=== PATIENT | female | born 1970 | race Caucasian/White ===

== ENCOUNTER 2021-08-19 22:27 | Inpatient (IN) | payer MEDICAID ==
[~2021-08-19] VITALS: Ht 160 cm; Wt 50.2 kg
[~2021-08-19 22:27] MED LIST: iohexol 350MG/ML 100ml bottle IV ONE
[2021-08-19] MEDS ORDERED: nitroGLYCERIN 1gm ointment UD TP ONE ×2 (22:46→22:50)
[2021-08-19] MEDS ORDERED: heparin 10,000 units/1 ML INJ IV ONE (22:50)
[2021-08-19] MEDS ORDERED: heparin 25,000 UNIT/250ml bag 250 ML IV SCH (22:50)
[2021-08-19] MEDS ORDERED: morphine 2 MG/ML inj. syringe IV ONE (22:50)
[2021-08-19 23:00] LABS: HEMATOCRIT 42.6 % (35.0-45.0); HEMOGLOBIN 14.7 g/dl (12.0-16.0); RED BLOOD COUNT 4.68 X10'6 (4.20-5.60); RED CELL DISTRIBUTION WIDTH 13.3 % (11.5-14.5)
[2021-08-19] MEDS ORDERED: morphine 4 MG/ML inj SYRINge IV ONE ×2 (23:00)
[2021-08-19] MEDS ORDERED: metoclopramide 5 mg/ml inj IV ONE (23:00)
[2021-08-19 23:02] LABS: BASOPHILS # (AUTO) 0.1 X10'3 (0-0.2); BASOPHILS % (AUTO) 0.9 % (0-1); EOSINOPHILS # (AUTO) 0.2 X10'3 (0-0.9); LYMPHOCYTES # (AUTO) 1.7 X10'3 (1.1-4.8); LYMPHOCYTES % (AUTO) 23.4 % (21-51); MEAN CORPUSCULAR HEMOGLOBIN 31.4 PG (27.0-31.0); MEAN CORPUSCULAR HGB CONC 34.5 g/dL (33.0-36.5); MEAN CORPUSCULAR VOLUME 91.1 FL (78-98); MEAN PLATELET VOLUME 8.8 FL (7.4-10.4); MONOCYTES # (AUTO) 0.7 X10'3 (0-0.9); NEUTROPHILS # (AUTO) 4.6 X10'3 (1.8-7.7); NEUTROPHILS % (AUTO) 62.7 % (42-75); PLATELET COUNT 249 X10'3 (140-440); WHITE BLOOD COUNT 7.4 X10'3 (4.5-11.0)
[2021-08-19 23:05] LABS: APTT 26 SECONDS (22-32)
[2021-08-19] MEDS ORDERED: metoprolol tartrate 1mg/ml inj IV ONE (23:05)
[2021-08-19 23:06] LABS: ALANINE AMINOTRANSFERASE 50 U/L (12-78); ALBUMIN 3.9 G/DL (3.4-5.0); ALBUMIN/GLOBULIN RATIO 0.9 (1.1-1.5); ALKALINE PHOSPHATASE 95 IU/L (46-116); ANION GAP 11 (8-16); ASPARTATE AMINO TRANSFERASE 26 U/L (10-37); BILIRUBIN,TOTAL 0.6 MG/DL (0.1-1.0); BLOOD UREA NITROGEN 15 MG/DL (7-18); BUN/CREATININE RATIO 18.5 (6.6-38.0); CALCIUM 8.9 MG/DL (8.5-10.1); CHLORIDE 103 MMOL/L (99-107); CREATININE 0.81 MG/DL (0.40-0.90); GLUCOSE 143 MG/DL (70-104); POTASSIUM 4.2 MMOL/L (3.5-5.1); SODIUM 142 MMOL/L (135-145); TOTAL CARBON DIOXIDE 27.9 MMOL/L (24-32); TOTAL PROTEIN 8.3 G/DL (6.4-8.2); eGFR 75 ML/MIN
[2021-08-19] MEDS ORDERED: LIDOcaine 1% 30ml preserv. free vial ONE (23:08)
[2021-08-19] MEDS ORDERED: midazolam 1 mg/ML 2ml injection ONE (23:08)
[2021-08-19] MEDS ORDERED: heparin 1,000unit/ml 10ml vial 10 ML ONE (23:08)
[2021-08-19] MEDS ORDERED: verapamil 2.5 mg/ml inj IV ONE (23:08)
[2021-08-19] MEDS ORDERED: iohexol 350MG/ML 100ml bottle IV ONE ×2 (23:08→23:51)
[2021-08-19] MEDS ORDERED: fentaNYL/PF 50MCG/1 ML 2ML syringe ONE (23:08)
[2021-08-19] MEDS ORDERED: nitroGLYCERIN-Tridil 50MG/D5W 250 ML IV ONE (23:08)
[2021-08-19] MEDS: heparin 10,000 units/1 ML INJ IV PRN (23:09)
[2021-08-19 23:14] LABS: MAGNESIUM 2.2 MG/DL (1.5-2.4)
--- NOTE | 2021-08-19 23:15 | NUR ---
PT'S SISTER MAY MAIN CONTACT [phone] RN NOTIFIED SISTER OF PATIENT STATUS
[2021-08-19] MEDS: nitroGLYCERIN 0.4mg SUBLingual tab SL PRN (23:59)
[2021-08-20] VITALS (27 sets, daily range): BP systolic 99–190; BP diastolic 58–112
[2021-08-20] MEDS: nitroGLYCERIN 0.4mg SUBLingual tab SL PRN ×3 (00:01→23:57)
[2021-08-20] MEDS: heparin 10,000 units/1 ML INJ IV PRN (00:04)
[2021-08-20] MEDS ORDERED: tirofiban 5mg in NS 100mL 100 ML IV ONE ×2 (00:20→04:45)
[2021-08-20] MEDS ORDERED: ticagrelor 90mg tablet ONE (00:33)
[2021-08-20] MEDS ORDERED: nitroGLYCERIN 0.4mg SUBLingual tab SL ONE (01:00)
[2021-08-20] MEDS ORDERED: metoprolol tartrate 1mg/ml inj IV ONE (01:00)
[2021-08-20] MEDS ORDERED: heparin 10,000 units/1 ML INJ ONE (01:00)
[2021-08-20] MEDS ORDERED: aspirin 81mg tab.chew ONE (01:00)
[2021-08-20] MEDS ORDERED: normal saline 1000ML IV soln ONE (01:00)
[2021-08-20] MEDS ORDERED: heparin, porcine-25,000 units/D5-250ml premix IV ONE (01:00)
[2021-08-20] MEDS ORDERED: magnesium hydroxide 30ml (MOM) UD suspension PO PRN (01:30)
[2021-08-20] MEDS ORDERED: diphenhydrAMINE 50 mg/ml inj IV PRN (01:30)
[2021-08-20] MEDS ORDERED: ondansetron 4mg rapidly disintigrating tab PO PRN (01:30)
[2021-08-20] MEDS ORDERED: diphenhydrAMINE 25mg capsule PO PRN (01:30)
[2021-08-20] MEDS ORDERED: acetaminophen 325mg tablet PO PRN ×2 (01:30)
[2021-08-20] MEDS ORDERED: normal saline 1000ml 1,000 ML IV SCH (01:30)
[2021-08-20] MEDS ORDERED: morphine 2 MG/ML inj. syringe IV PRN ×2 (01:30)
[2021-08-20] MEDS ORDERED: ondansetron/PF 4mg/2ml inj IV PRN (01:30)
[2021-08-20] MEDS ORDERED: acetaminophen 650mg rectal suppository RC PRN (01:30)
[2021-08-20] MEDS ORDERED: mag hydrox/Alum hydrox/simeth 30ml oral suspension PO PRN (01:30)
[2021-08-20] MEDS ORDERED: bisacodyl 10mg suppository rectal RC PRN (01:30)
[2021-08-20] MEDS ORDERED: HYDROcodone/acetaminophen 5mg/325mg tablet PO PRN (01:30)
[2021-08-20] MEDS ORDERED: HYDROmorphone inj. 0.5 MG/0.5 ML DISP.SYRIN IV PRN (01:30)
[2021-08-20] MEDS: morphine 2 MG/ML inj. syringe IV PRN ×4 (01:42→23:57)
[2021-08-20] MEDS ORDERED: LORazepam 0.5 MG tablet PO PRN (01:50)
[2021-08-20] MEDS ORDERED: hydrALAZINE 20mg/ml inj. IV PRN (02:05)
[2021-08-20] MEDS ORDERED: nitroGLYCERIN-Tridil 50MG/D5W 250 ML IV SCH (02:05)
[2021-08-20] MEDS ORDERED: nitroGLYCERIN-Tridil 50MG/D5W 250 ML IV ONE (02:10)
[2021-08-20 03:15] LABS: BASOPHILS % (AUTO) 0.3 % (0-1); EOSINOPHILS # (AUTO) 0.1 X10'3 (0-0.9); EOSINOPHILS % (AUTO) 0.6 % (0-6); HEMATOCRIT 39.5 % (35.0-45.0); HEMOGLOBIN 13.7 g/dl (12.0-16.0); LYMPHOCYTES # (AUTO) 0.9 X10'3 (1.1-4.8); LYMPHOCYTES % (AUTO) 9.8 % (21-51); MEAN CORPUSCULAR HEMOGLOBIN 31.5 PG (27.0-31.0); MEAN CORPUSCULAR HGB CONC 34.7 g/dL (33.0-36.5); MEAN CORPUSCULAR VOLUME 90.9 FL (78-98); MEAN PLATELET VOLUME 9.8 FL (7.4-10.4); MONOCYTES # (AUTO) 0.5 X10'3 (0-0.9); MONOCYTES % (AUTO) 4.9 % (2-12); NEUTROPHILS # (AUTO) 7.9 X10'3 (1.8-7.7); NEUTROPHILS % (AUTO) 84.4 % (42-75); PLATELET COUNT 235 X10'3 (140-440); RED BLOOD COUNT 4.35 X10'6 (4.20-5.60); RED CELL DISTRIBUTION WIDTH 13.3 % (11.5-14.5); WHITE BLOOD COUNT 9.4 X10'3 (4.5-11.0)
[2021-08-20 03:34] LABS: HEMOGLOBIN A1C 5.5 % (4.5-6.2)
[2021-08-20 03:35] LABS: ALANINE AMINOTRANSFERASE 49 U/L (12-78); ALBUMIN 3.4 G/DL (3.4-5.0); ALBUMIN/GLOBULIN RATIO 0.9 (1.1-1.5); ALKALINE PHOSPHATASE 92 IU/L (46-116); ANION GAP 9 (8-16); ASPARTATE AMINO TRANSFERASE 58 U/L (10-37); BILIRUBIN,TOTAL 0.6 MG/DL (0.1-1.0); BLOOD UREA NITROGEN 13 MG/DL (7-18); BUN/CREATININE RATIO 24.5 (6.6-38.0); CALCIUM 8.1 MG/DL (8.5-10.1); CHLORIDE 104 MMOL/L (99-107); CREATININE 0.53 MG/DL (0.40-0.90); GLUCOSE 155 MG/DL (70-104); POTASSIUM 3.5 MMOL/L (3.5-5.1); SODIUM 140 MMOL/L (135-145); TOTAL CARBON DIOXIDE 26.9 MMOL/L (24-32); TOTAL PROTEIN 7.4 G/DL (6.4-8.2); eGFR > 90 ML/MIN
[2021-08-20 03:45] LABS: CHOL/HDL RATIO 3.5 (0.00-4.99); CHOLESTEROL 115 MG/DL (0-200); CREATINE KINASE 198 U/L (26-192); ETHANOL < 0.010 GM/DL (0.0-0.010); HDL CHOLESTEROL 33 MG/DL (35-60); LDL CHOLESTEROL 76 MG/DL (50-100); LIPASE 52 U/L (73-393); MAGNESIUM 2.1 MG/DL (1.5-2.4); TRIGLYCERIDES 46 MG/DL (20-135)
--- NOTE | 2021-08-20 05:30 | NUR ---
Communication Dr. Vincent at bedside shopping
--- NOTE | 2021-08-20 06:30 | NUR ---
Patient in room CICU 2014. I have received report from Mac RN and had the opportunity to ask questions and assume patient care.
--- NOTE | 2021-08-20 07:15 | NUR ---
Patient C/O sternal pain. States it is 3-4. ECG done and Troponin drawn. Dr. Hernandez and Anni COHEN into see patient. Dr. Hernandez stated she was having reperfusion pain. No STEMI at this time. Plan to DC sheath.
[2021-08-20] MEDS ORDERED: metoprolol succinate 25mg (24-HOUR) SR. Tablet PO SCH (08:00)
[2021-08-20] MEDS ORDERED: potassium Cl 20 mEq SR tablet PO PRN (08:55)
[2021-08-20] MEDS ORDERED: potassium CL 10mEq/100ml bag 100 ML IV PRN (08:55)
[2021-08-20] MEDS ORDERED: magnesium 2GM in 50ml NS 50 ML IV PRN (08:55)
[2021-08-20] MEDS ORDERED: magnesium 4gm in 100ml NS 100 ML IV PRN (08:55)
[2021-08-20] MEDS: spironolactone 25 MG tablet PO SCH (09:07)
[2021-08-20] MEDS: furosemide 10 MG/1 ML 10ml inj IV SCH (09:07)
[2021-08-20] MEDS: docusate sod 100mg capsule PO SCH ×2 (09:08→20:14)
[2021-08-20] MEDS: HYDROcodone/acetaminophen 10/325mg tab PO PRN (09:08)
[2021-08-20] MEDS: ticagrelor 90mg tablet PO SCH ×2 (09:08→20:14)
[2021-08-20] MEDS: aspirin 81mg tab.chew PO SCH (09:08)
[2021-08-20] MEDS: atorvastatin 20mg tablet PO SCH (09:08)
[2021-08-20] MEDS: lisinopril 10 MG tablet PO SCH (09:09)
[2021-08-20] MEDS: pantoprazole 40mg Tablet.DR PO SCH (09:10)
[2021-08-20] MEDS ORDERED: NO HOME MEDS (10:45)
--- NOTE | 2021-08-20 11:35 | NUR ---
Right femoral sheath DC'd. Manual pressure held x 35 minutes until hemostasis achieved. Fem-Stop applied. Small hematoma. Pedal pulses palpable.
[2021-08-20 14:34] LABS: APTT 27 SECONDS (22-32)
--- NOTE | 2021-08-20 17:37 | NUR ---
Fem-Stop removed. Groin site soft with small hematoma. No bleeding. Pedal pulses palpable. No C/O chest pain. NTG weaned off. SBP in 130's.
--- NOTE | 2021-08-20 18:22 | NUR ---
Problems reprioritized. Patient report given, questions answered & plan of care reviewed with Mac RN.
--- NOTE | 2021-08-20 19:30 | NUR ---
RN Note -MD Communication Dr. Hernandez at bedside. Reviewed pt's chart and plan of care. Orders received.
[2021-08-20] MEDS: metoprolol succinate 25mg (24-HOUR) SR. Tablet PO SCH (20:15)
[2021-08-20] MEDS ORDERED: temazepam 15mg capsule PO PRN (21:00)
[2021-08-21] VITALS (23 sets, daily range): BP systolic 96–166; BP diastolic 58–108
[2021-08-21 06:51] LABS: ALANINE AMINOTRANSFERASE 57 U/L (12-78); ALBUMIN 3.6 G/DL (3.4-5.0); ALBUMIN/GLOBULIN RATIO 0.8 (1.1-1.5); ALKALINE PHOSPHATASE 80 IU/L (46-116); ANION GAP 8 (8-16); ASPARTATE AMINO TRANSFERASE 182 U/L (10-37); BILIRUBIN,TOTAL 1.6 MG/DL (0.1-1.0); BLOOD UREA NITROGEN 11 MG/DL (7-18); BUN/CREATININE RATIO 16.9 (6.6-38.0); CALCIUM 9.2 MG/DL (8.5-10.1); CHLORIDE 103 MMOL/L (99-107); CHOL/HDL RATIO 3.2 (0.00-4.99); CHOLESTEROL 129 MG/DL (0-200); CREATININE 0.65 MG/DL (0.40-0.90); GLUCOSE 111 MG/DL (70-104); HDL CHOLESTEROL 40 MG/DL (35-60); LDL CHOLESTEROL 77 MG/DL (50-100); POTASSIUM 4.1 MMOL/L (3.5-5.1); SODIUM 136 MMOL/L (135-145); TOTAL CARBON DIOXIDE 25.2 MMOL/L (24-32); TOTAL PROTEIN 7.9 G/DL (6.4-8.2); TRIGLYCERIDES 96 MG/DL (20-135); eGFR > 90 ML/MIN
[2021-08-21] MEDS: furosemide 10 MG/1 ML 10ml inj IV SCH (09:06)
[2021-08-21] MEDS: lisinopril 10 MG tablet PO SCH (09:07)
[2021-08-21] MEDS: atorvastatin 20mg tablet PO SCH (09:07)
[2021-08-21] MEDS: spironolactone 25 MG tablet PO SCH (09:09)
[2021-08-21] MEDS: aspirin 81mg tab.chew PO SCH (09:09)
[2021-08-21] MEDS: docusate sod 100mg capsule PO SCH ×2 (09:10→20:04)
[2021-08-21] MEDS: metoprolol succinate 25mg (24-HOUR) SR. Tablet PO SCH ×2 (09:10→20:05)
[2021-08-21] MEDS: pantoprazole 40mg Tablet.DR PO SCH (09:10)
[2021-08-21] MEDS: ticagrelor 90mg tablet PO SCH ×2 (09:10→20:04)
[2021-08-21] MEDS ORDERED: ibuprofen tablet 400 MG TABLET PO PRN (13:55)
[2021-08-21] MEDS: HYDROcodone/acetaminophen 10/325mg tab PO PRN (17:34)
--- NOTE | 2021-08-21 18:00 | NUR ---
Patient in room CICU 2014. I have received report from Syd and had the opportunity to ask questions and assume patient care.
[2021-08-21] MEDS: morphine 2 MG/ML inj. syringe IV PRN (20:24)
[2021-08-22] VITALS (13 sets, daily range): BP systolic 80–101; BP diastolic 43–67
[2021-08-22] MEDS: nitroGLYCERIN 0.4mg SUBLingual tab SL PRN ×3 (03:35→03:45)
[2021-08-22] MEDS: morphine 2 MG/ML inj. syringe IV PRN (03:54)
--- NOTE | 2021-08-22 04:22 | NUR ---
@ approx 0330 pt stated chest pressure 4/10. Described it as the same type she came in with. EKG was done showing worse ST elevation in anterolateral leads than earlier in the day. NTG SL given x3, Morphine 2mg IV given. notified of pt condition and EKG/meds given. STAT troponin ordered. Attempting to draw that now.
[2021-08-22 05:15] LABS: BASOPHILS % (AUTO) 0.3 % (0-1); EOSINOPHILS % (AUTO) 0.3 % (0-6); HEMATOCRIT 42.4 % (35.0-45.0); HEMOGLOBIN 14.6 g/dl (12.0-16.0); LYMPHOCYTES # (AUTO) 0.6 X10'3 (1.1-4.8); MEAN CORPUSCULAR HEMOGLOBIN 31.2 PG (27.0-31.0); MEAN CORPUSCULAR HGB CONC 34.4 g/dL (33.0-36.5); MEAN CORPUSCULAR VOLUME 90.7 FL (78-98); MEAN PLATELET VOLUME 9.9 FL (7.4-10.4); MONOCYTES # (AUTO) 1.5 X10'3 (0-0.9); MONOCYTES % (AUTO) 9.3 % (2-12); NEUTROPHILS # (AUTO) 13.7 X10'3 (1.8-7.7); NEUTROPHILS % (AUTO) 86.1 % (42-75); PLATELET COUNT 282 X10'3 (140-440); RED BLOOD COUNT 4.67 X10'6 (4.20-5.60); RED CELL DISTRIBUTION WIDTH 13.2 % (11.5-14.5); WHITE BLOOD COUNT 15.9 X10'3 (4.5-11.0)
--- NOTE | 2021-08-22 05:31 | NUR ---
Dr. Hernandez called back. Troponin still not resulted. Pt currently denies any chest pain/pressure and is resting comfortably.
[2021-08-22 05:33] LABS: ALANINE AMINOTRANSFERASE 42 U/L (12-78); ALBUMIN 3.2 G/DL (3.4-5.0); ALBUMIN/GLOBULIN RATIO 0.7 (1.1-1.5); ALKALINE PHOSPHATASE 73 IU/L (46-116); ANION GAP 8 (8-16); ASPARTATE AMINO TRANSFERASE 79 U/L (10-37); BILIRUBIN,TOTAL 1.4 MG/DL (0.1-1.0); BLOOD UREA NITROGEN 24 MG/DL (7-18); CALCIUM 8.8 MG/DL (8.5-10.1); CHLORIDE 100 MMOL/L (99-107); CREATININE 1.09 MG/DL (0.40-0.90); GLUCOSE 114 MG/DL (70-104); POTASSIUM 4.3 MMOL/L (3.5-5.1); SODIUM 134 MMOL/L (135-145); TOTAL CARBON DIOXIDE 26.1 MMOL/L (24-32); TOTAL PROTEIN 7.8 G/DL (6.4-8.2); eGFR 53 ML/MIN
--- NOTE | 2021-08-22 05:55 | NUR ---
Dr. Hernandez updated with troponin level of 8484 (previous was 11592). He asked that she be made NPO and consented for another heart cath. He would like to go in to make sure there is nothing else going on, planned time for heart cath of 0800. [employer] made aware by Charge Nurse. Pt notified of Dr. Hernandez's wishes, she agrees to heart cath and signed consent. Still currently no chest pain at this time and resting comfortably.
[2021-08-22] MEDS ORDERED: LIDOcaine/PRILOcaine 5gm cream TP ONE (06:50)
[2021-08-22] MEDS ORDERED: nitroGLYCERIN-Tridil 50MG/D5W 250 ML IV ONE (07:37)
[2021-08-22] MEDS ORDERED: verapamil 2.5 mg/ml inj IV ONE (07:37)
[2021-08-22] MEDS ORDERED: iohexol 350MG/ML 100ml bottle IV ONE ×2 (07:38→08:39)
[2021-08-22] MEDS ORDERED: fentaNYL/PF 50MCG/1 ML 2ML syringe ONE (07:38)
[2021-08-22] MEDS ORDERED: midazolam 1 mg/ML 2ml injection ONE (07:38)
[2021-08-22] MEDS ORDERED: heparin 1,000unit/ml 10ml vial 10 ML ONE (07:38)
[2021-08-22] MEDS ORDERED: diphenhydrAMINE 50 mg/ml inj ONE (07:38)
[2021-08-22] MEDS ORDERED: LIDOcaine 1% 30ml preserv. free vial ONE (07:38)
[2021-08-22] MEDS ORDERED: hydrocortisone sod succ/PF 100mg/2ml inj. ONE (07:39)
--- NOTE | 2021-08-22 07:45 | NUR ---
to slab tripper
[2021-08-22] MEDS: lisinopril 10 MG tablet PO SCH (08:00)
[2021-08-22] MEDS: furosemide 10 MG/1 ML 10ml inj IV SCH (08:00)
[2021-08-22] MEDS: metoprolol succinate 25mg (24-HOUR) SR. Tablet PO SCH (08:00)
--- NOTE | 2021-08-22 09:15 | NUR ---
returned from [facility], right groin bruise unchanged. perc closed dressing clear, pedal pulses palp
[2021-08-22] MEDS ORDERED: normal saline 1000ml 1,000 ML IV SCH (09:25)
[2021-08-22] MEDS: aspirin 81mg tab.chew PO SCH (10:34)
[2021-08-22] MEDS: pantoprazole 40mg Tablet.DR PO SCH (10:34)
[2021-08-22] MEDS: ticagrelor 90mg tablet PO SCH (10:34)
[2021-08-22] MEDS: docusate sod 100mg capsule PO SCH (10:34)
[2021-08-22] MEDS: atorvastatin 20mg tablet PO SCH (10:34)
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
--- NOTE | 2021-08-22 16:26 | NUR ---
Dr Purdy called updated.
--- NOTE | 2021-08-22 16:57 | NUR ---
pt signed AMA form. PIV dc'd with cath tip intact. pt dressed herself and ambulated independently. pt informed that she was not going to receive any discharge medications. she stated understanding. informed pt of the very strong need to establish with a PCP and follow up with cardiology. she stated understanding. Dr. Estrada and Dr. Hernandez informed and callback was received
--- NOTE | 2021-08-22 17:20 | NUR ---
called dr henson and informed that pt left without med orders. gave telephone order for DC meds. attempted to locate pt in check ER told that she was there looking for purse. checked physical chart and emr for phone number no phone number found.
== END 2021-08-22 17:00 | disposition left against medical advice (07) | DRG 174 ==
LOC: ER 22:27 → UNDOADMIN 08-20 01:21 → CICU 2S 08-20 01:21
PROVIDERS: ADMIT Internal Medicine Cardiovascular Disease; ATTEND Family Medicine
PROC: 02703ZZ Dilation of Coronary Artery, One Artery, Percutaneous Approach (ICD-10-PCS; principal; 2021-08-19)
PROC: 4A023N7 Measurement of Cardiac Sampling and Pressure, Left Heart, Percutaneous Approach (ICD-10-PCS; 2021-08-19)
PROC: B2111ZZ Fluoroscopy of Multiple Coronary Arteries using Low Osmolar Contrast (ICD-10-PCS; 2021-08-19)
PROC: B2151ZZ Fluoroscopy of Left Heart using Low Osmolar Contrast (ICD-10-PCS; 2021-08-19)
PROC: 4A023N7 Measurement of Cardiac Sampling and Pressure, Left Heart, Percutaneous Approach (ICD-10-PCS; 2021-08-22)
PROC: B2111ZZ Fluoroscopy of Multiple Coronary Arteries using Low Osmolar Contrast (ICD-10-PCS; 2021-08-22)
PROC: B2151ZZ Fluoroscopy of Left Heart using Low Osmolar Contrast (ICD-10-PCS; 2021-08-22)
DX: I21.02 ST elevation (STEMI) myocardial infarction involving left anterior descending coronary artery (principal); I50.23 Acute on chronic systolic (congestive) heart failure; N17.9 Acute kidney failure, unspecified; F15.129 Other stimulant abuse with intoxication, unspecified; I13.0 Hypertensive heart and chronic kidney disease with heart failure and stage 1 through stage 4 chronic kidney disease, or unspecified chronic kidney disease; F17.210 Nicotine dependence, cigarettes, uncomplicated; G43.909 Migraine, unspecified, not intractable, without status migrainosus; I16.1 Hypertensive emergency; I25.10 Atherosclerotic heart disease of native coronary artery without angina pectoris; J44.9 Chronic obstructive pulmonary disease, unspecified; N18.9 Chronic kidney disease, unspecified; Z53.29 Procedure and treatment not carried out because of patient's decision for other reasons; Z79.82 Long term (current) use of aspirin; I25.2 Old myocardial infarction; Z95.5 Presence of coronary angioplasty implant and graft; Z91.013 Allergy to seafood; Z71.51 Drug abuse counseling and surveillance of drug abuser; Z71.6 Tobacco abuse counseling
CPT/HCPCS: 36415; 71045; 76937; 80053; 80061; 80320; 82550; 83036; 83690; 83735; 83880; 84100; 84443; 84484; 85025; 85347; 85610; 85651; 85730; 87081; 92508; 92616; 93005; 93306; 93458; 97161; 97530; 99152; 99153; 99285; A4615; A4620; A5120; A6258; A6449; C1760; C1769; C1894; G0378; J0360; J1170; J1200; J1644; J1720; J1940; J2250; J2270; J2405; J3010; J3246; J3490; J7030; Q9967